=== PATIENT | female | born 1945 | race Caucasian/White ===

== ENCOUNTER 2024-01-21 09:43 | Emergency (ER) | payer OTHER, SELFPAY ==
[2024-01-21] VITALS (10 sets, daily range): BP systolic 114–144; BP diastolic 60–73; PULSE 69–84; BMI 22.1
[2024-01-21] MEDS: NSS 1000 IV (10:36)
[2024-01-21 10:47] LABS: % Basophils 0.8 % (0-2); % Eosinophils 4.8 % (0-6); % Immature Granulocytes 0.3 % (0-0.5); % Lymphocytes 22.1 % (20.5-51.1); % Monocytes 10.1 % (1.7-9.3); % Neutrophils 61.9 % (42.2-75.2); Absolute Basophils 0.1 10^3/uL (0-0.2); Absolute Eosinophils 0.3 10^3/uL (0-0.7); Absolute Lymphocytes 1.4 10^3/uL (1.2-3.4); Absolute Monocytes 0.7 10^3/uL (0.1-0.6); Hematocrit 35.7 % (37.0-47.0); Hemoglobin 11.9 g/dL (12.0-16.0); Mean Corp Hgb Conc. 33.3 g/dL (33.0-37.0); Mean Corpuscular Hgb 30.7 pg (27.0-31.0); Mean Platelet Volume 10.1 fL (7.4-10.4); Nucleated Red Blood Cells % 0 %; Platelet Count 230 10^3/uL (130-400); Red Blood Cell Count 3.88 10^6/uL (4.20-5.40); Red Cell Dist. Width 13.6 % (11.5-14.5); White Blood Cell Count 6.4 10^3/uL (4.8-10.8)
[2024-01-21 11:07] LABS: ALT (SGPT) 15 U/L (0-35); AST (SGOT) 29 U/L (14-36); Albumin 5.1 g/dl (3.5-5.0); Alkaline Phosphatase 50 U/L (38-126); Blood Urea Nitrogen 31 mg/dl (7-17); Calcium 9.9 mg/dl (8.4-10.2); Chloride 104 mmol/L (98-107); Estimated Creatinine Clearance 41 ml/min; Glucose 101 mg/dl (70-99); Potassium 4.7 mmol/L (3.5-5.1); Sodium 139 mmol/L (135-145); Total Bilirubin 0.9 mg/dl (0.2-1.3); Total Protein 8.3 g/dl (6.3-8.2)
--- NOTE | 2024-01-21 11:10 | EDRN ---
provider currently at the pts bedside
--- NOTE | 2024-01-21 11:16 | ED.GENMED ---
History of Present Illness
General
Chief Complaint: Dizziness
Source: patient and family
Exam Limitations: none
Time Seen by Provider: 01/21/24 10:44
Nursing documentation reviewed up to this point in time: agreed with
History of Present Illness
History of Present Illness:
Patient is an 78-year-old female with history hypertension, hyperlipidemia, Alzheimer's presenting to the emergency department for evaluation of lightheadedness. Patient states she felt 'woozy 'like she was going to pass out yesterday when she woke
up for a few hours. It resolved and for the rest the day yesterday she was feeling her baseline. This morning when was leaning down to get her cat out from under a table she had another episode of 'wooziness '. Her daughter was at her house at
the time and they checked her blood pressure which was found to be 80s/60s. They spoke to her primary care provider who recommended that she come to the emergency department for further evaluation.
Patient denies any fever, chills, chest pain, or shortness of breath. Patient denies any true dizziness sensation or feeling of spinning/motion. Patient denies any difficulties walking/unsteady gait. Patient denies any visual changes, blurry
vision, double vision. Patient denies any nausea or vomiting.
Patient does note that she does not drink much water during the day. She mainly drinks coffee.
Past History
Past History
ED Past Medical History: HTN, Hypercholesterolemia and Other (Alzheimer's)
ED Past Surgical History: None
Social History
Tobacco: Non-smoker
Alcohol: None
Drug: None
Employment: Retired
Review of Systems
Review of Systems
Allergies reviewed?: Yes
All Other Systems: ROS reviewed and negative except as documented in HPI and ROS
Phy Exam
Physical Exam
Physical Exam:
Vitals: Patient's vital signs are stable. Afebrile
General: Patient is frail appearing, no acute distress. Nontoxic-appearing
Skin: Warm and dry, no rashes or lesions
Head: Normocephalic, atraumatic
Eyes: Sclera nonicteric. EOMs intact. No nystagmus.
Throat: Protecting airway. Dry mucous membranes
Neck: Normal ROM, no cervical spine tenderness, no meningismus
Cardiac: Regular rate and rhythm, no murmurs.
Pulm: Normal respiratory effort, no wheezes, rales, rhonchi heard on exam.
Abdomen: Abdomen soft. No abdominal tenderness.
Extremities: No evidence of cyanosis or edema. Great distal pulses
Neuro: AAOx3. CN II-XII intact. No focal neurologic deficits. Steady gait. Normal finger-nose. Strength 5 out of 5 in upper and lower extremities. Sensation fully intact.
Psychiatric: Normal affect.
Course
Orders/Labs/Results
Orders:
Orders
01/21/24 09:58
Electrocardiogram (*1) Urgent
Reason for Study: Vertigo / Dizzy
EKG- Treatment ONCE
01/21/24 10:35
0.9% Sodium Chloride 1000 ml [Nss] 1,000 ml IV BOLUS
01/21/24 10:36
CMP [Comprehensive Metabolic Panel] Urgent
Complete Blood Count/With Diff Urgent
01/21/24 12:36
Orthostatic VS- Treatment ONCE
Abnormal Lab Results
01/21/24
10:36
RBC 3.88 L 10^6/uL
(4.20-5.40)
Hgb 11.9 L g/dL
(12.0-16.0)
Hct 35.7 L %
(37.0-47.0)
Absolute Monos (auto) 0.7 H 10^3/uL
(0.1-0.6)
Monocytes % 10.1 H %
(1.7-9.3)
BUN 31 H mg/dl
(7-17)
Creatinine 1.1 H mg/dL
(0.6-1.0)
Glucose 101 H mg/dl
(70-99)
Total Protein 8.3 H g/dl
(6.3-8.2)
Albumin 5.1 H g/dl
(3.5-5.0)
01/21/24 10:36
01/21/24 10:36
Vital Signs
Initial and Last Documented VS:
Initial Vital Signs
Temp Pulse Resp BP Pulse Ox
97.9 F 70 20 125/65 96
01/21/24 09:55 01/21/24 09:55 01/21/24 09:55 01/21/24 09:55 01/21/24 09:55
Last Documented Vital Signs
Temp Pulse Resp BP Pulse Ox
97.9 F 76 15 130/64 96
01/21/24 09:55 01/21/24 12:23 01/21/24 12:23 01/21/24 12:23 01/21/24 12:23
MDM/Problems Addressed
Differential Diagnosis Includes:
Not limited to: Orthostatic hypotension dehydration, viral illness, cardiac arrhythmia, anemia, BPPV
MDM/Problems Addressed:
78-year-old female presenting with lightheaded sensation this morning associated with low blood pressure readings at home. Positional lightheadedness with systolic blood pressure in 80s this morning. No other associated headache, dizziness,
nausea, vomiting, chest pain, or shortness of breath. Patient denies any ataxia, visual disturbances, speech difficulties. Patient instructed to visit emergency department by primary care physician. Patient asymptomatic by time of arrival to
emergency department my assessment. Vital signs are stable. Blood pressure of 125/65. Otherwise vital signs are stable. Physical exam as above. Patient is frail-appearing although nontoxic. Somewhat dry mucous membranes. Heart regular rate
and rhythm. Lungs clear bilaterally. Abdomen is soft and nontender. Patient is perfusing well. She is no focal neurologic deficits on exam. She is in normal [id number]. To get patient up and walking with a steady gait. Speech is fluid.
Orthostatic vital signs were obtained by nurse on initial evaluation which do show a drop in the systolic blood pressure of 25. This would be consistent with orthostatic hypotension. Labs were initiated in triage which show no clinically again
abnormalities. Some mild prerenal insufficiency noted�likely due to dehydration as patient does note she drinks very little water and only coffee. EKG without any acute ischemic changes or arrhythmias. Will give patient a liter of saline and
recheck orthostatic vital signs.
Patient has remained asymptomatic in the emergency department since arrival. She denies any current lightheadedness, dizziness. Repeat orthostatic vital signs normalized without any systolic drop following liter of IV fluids. No indication for
admission at this time. Suspect symptoms likely due to dehydration. Discussed case with attending physician. Patient will be discharged with instruction to stay well-hydrated, take it easy over the next 2 days. Return precautions discussed at
length. Patient will follow with primary care. Advised to have labs rechecked in 1 to 2 weeks
Chronic conditions affecting care:
Hypertension, hyperlipidemia, Alzheimer's
Acute Exacerbation and/or Progression of Chronic Illness:
N/A
*Pulse Oximetry
Patient hypoxic: no
*EKG
Interpreted by ED Provider?: Yes
EKG Intrepretation Date: 01/21/24
Interpretation: normal
Comparison EKG: no changes
Heart Rate: 67
Rate: normal
Rhythm: sinus
[place]: normal axis
Interval: normal interval
QRS Pattern: normal QRS
Ischemia: no ischemia
*[employer] Interpretation
Rate: normal
Interpretation: normal
Heart Rate: 75
Rhythm: sinus
*Critical Care Note
Total Time (30-74mins, 75-104mins- exclusive of procedures): Not Applicable
ED Attending Note
-
Portions of this chart may have been created with voice recognition software.� Occasional wrong word or��sound alike� substitutions may have occurred due to the inherent limitations of voice recognition software.
Discharge Plan
Departure
Patient Disposition: Home (Routine Discharge)
Date of Disposition: 01/21/24
Time of Disposition: 13:04
Patient with high blood pressure during this ER visit?: No
Condition: Good
Covid-19: Not Applicable
Discharge Problem:
Light-headedness
Instructions: Orthostatic hypotension, Dehydration, Adult ED
Prescriptions:
No Action
albuterol sulfate [ProAir HFA] 90 mcg/actuation HFA aerosol inhaler
1 puff inhalation Q4HPRN PRN (Reason: shortness of breath) Qty: 8.5 0RF
Referrals:
UNKNOWN - PT DOES,NOT KNOW [Family Provider] -
Activity Restrictions/Additional Instructions:
RETURN TO THE EMERGENCY DEPARTMENT WITH ANY FEVERS, LIGHTHEADEDNESS/DIZZINESS, FAINTING, CHEST PAIN, SHORTNESS OF BREATH, LOW BLOOD PRESSURE, SIGNS OF SEVERE DEHYDRATION, WORSENING IN CURRENT SYMPTOMS, OR ANY OTHER CONCERNS
-As discussed - it is important to stay well hydrated. You should take it easy over the next few days. Please ensure that you move slowly from sitting to standing. If you notice any persistent low blood pressure or if associated with symptoms,
return to the emergency department
-Please have your labs rechecked with your primary care within 1-2 weeks. You should have a CBC and a basic metabolic panel (BMP).
-Continue to take all of your medications as prescribed
-Follow-up with your PCP in a week to ensure symptoms improving/for further evaluation
Monitor your symptoms closely and return to the emergency department with any acute worsening/new symptoms.
Interventions
Interventions:
*Risk Screen - Suicide Last Done: 01/21/24 10:40
*General Assessment Last Done: 01/21/24 10:40
*Neglect/Abuse Screening Last Done: 01/21/24 10:40
ED- Fall Risk Assessment Last Done: 01/21/24 10:40
*ED COVID-19 Vaccine History Last Done: 01/21/24 10:40
*Nursing Disposition Last Done: 01/21/24 13:41
ED- Neurological Assessment Last Done: 01/21/24 10:40
ED- Cardiac Assessment Last Done: 01/21/24 10:40
ED Swallowing Screen Last Done: 01/21/24 10:40
Discharge Date and Time
Discharge Date/Time: 01/21/24 13:42
Print Language: CHINESE
[2024-01-21 11:32] LABS: Carbon Dioxide 27 mmol/L (22-30)
== END 2024-01-21 13:42 | disposition home or self-care (01) ==
LOC: EMR 09:43
PROVIDERS: EMERGENCY PHYSICIAN Emergency Medicine
DX: R42 Dizziness and giddiness (principal); I10 Essential (primary) hypertension; E78.00 Pure hypercholesterolemia, unspecified; F02.80 Dementia in other diseases classified elsewhere, unspecified severity, without behavioral disturbance, psychotic disturbance, mood disturbance, and anxiety; G30.9 Alzheimer's disease, unspecified; R54 Age-related physical debility; Z88.0 Allergy status to penicillin
CPT/HCPCS: 99284; 96360; 80053; 85025; 93005

== ENCOUNTER 2024-07-08 13:27 | Outpatient (RCR) | payer SELFPAY | END 2024-07-08 23:59 | disposition home or self-care (01) | LOC: ROT 13:27 | PROVIDERS: ATTENDING PHYSICIAN Psychiatry & Neurology Neurology | DX: Z02.4 Encounter for examination for driving license (principal) ==

== ENCOUNTER 2025-01-18 09:51 | Emergency (ER) | payer OTHER, SELFPAY ==
[2025-01-18 10:10] VITALS: BP 139/65
--- NOTE | 2025-01-18 12:10 | ED.GENMED ---
History of Present Illness
General
Chief Complaint: Blood Pressure Problem
Time Seen by Provider: 01/18/25 12:03
History of Present Illness
History of Present Illness:
79-year-old female presents to the emergency department for evaluation of the low blood pressure that was recorded yesterday. She states she felt nauseated yesterday and her respiratory care program director at home and took a blood pressure of 60 systolic. Her son
advised her to come to the hospital for evaluation. She states she feels well today. She does note that she takes 3 blood pressure medicines but is not certain what these medicines are, tells me that she intentionally held the medicines this
morning. Her respiratory care program director is not able to provide any information and I was unable to reach the son by telephone. She denies any fever, chills, sweats, chest pain, or shortness of breath
Past History
Past History
ED Past Medical History: HTN, Hypercholesterolemia and Other (Alzheimer's)
ED Past Surgical History: None
Social History
Tobacco: Non-smoker
Alcohol: None
Drug: None
Employment: Retired
Review of Systems
Review of Systems
Allergies reviewed?: Yes
All Other Systems: ROS reviewed and negative except as documented in HPI and ROS
Phy Exam
Physical Exam
Physical Exam:
GEN: Well appearing, NAD, WDWN
HEENT: Oral mucosa moist, no scleral icterus
Cardiac: Regular rate and rhythm, no murmurs
Lung: No respiratory distress, no tachypnea, lungs clear to auscultation
MSK: No gross deformity or injuries
Skin: Good color, no pallor or jaundice, no rashes
Neuro: AO x3, moves all extremities freely
Psych: Calm, cooperative
Course
Orders/Labs/Results
Orders:
01/18/25 12:08
01/18/25 12:08
Vital Signs
Initial and Last Documented VS:
Initial Vital Signs
Temp Pulse Resp BP Pulse Ox
98.0 F 68 18 139/65 98
01/18/25 10:10 01/18/25 10:10 01/18/25 10:10 01/18/25 10:10 01/18/25 10:10
Last Documented Vital Signs
Temp Pulse Resp BP Pulse Ox
98.0 F 68 18 139/65 98
01/18/25 10:10 01/18/25 10:10 01/18/25 10:10 01/18/25 10:10 01/18/25 12:10
MDM/Problems Addressed
MDM/Problems Addressed:
After my evaluation I had recommended checking labs to evaluate for electrolyte derangement, renal dysfunction, or anemia however there the patient declines, she does have dementia but her respiratory care program director spoke with her son who feels that he does not need
any lab work, her blood pressure is improved. The patient eloped prior to my reassessment in order for me to discuss how to manage her home blood pressure medicine going forward
*Pulse Oximetry
SaO2: 98
Oxygen Mode of Delivery: Room air
Patient hypoxic: no
*Critical Care Note
Total Time (30-74mins, 75-104mins- exclusive of procedures): Not Applicable
Update Note
Update Note:
1217: Pt eloped after evaluation. Per RN, pt and son declined labs.
ED Attending Note
-
Portions of this chart may have been created with voice recognition software.� Occasional wrong word or��sound alike� substitutions may have occurred due to the inherent limitations of voice recognition software.
Discharge Plan
Departure
Patient Disposition: Elopement
Date of Disposition: 01/18/25
Time of Disposition: 12:17
Discharge Problem:
Acute hypotension
Prescriptions:
No Action
albuterol sulfate [ProAir HFA] 90 mcg/actuation HFA aerosol inhaler
1 puff inhalation Q4HPRN PRN (Reason: shortness of breath) Qty: 8.5 0RF
Referrals:
UNKNOWN - PT DOES,NOT KNOW [Family Provider]
Interventions
Interventions:
*Risk Screen - Suicide Last Done: 01/18/25 10:10
*Neglect/Abuse Screening Last Done: 01/18/25 10:10
*Nursing Disposition Last Done: 01/18/25 12:27
Discharge Date and Time
Discharge Date/Time: 01/18/25 12:31
Print Language: SLOV[place]
== END 2025-01-18 12:31 | disposition left against medical advice (07) ==
LOC: EMR 09:51
PROVIDERS: EMERGENCY PHYSICIAN Emergency Medicine
DX: I95.9 Hypotension, unspecified (principal); R11.0 Nausea; I10 Essential (primary) hypertension; E78.00 Pure hypercholesterolemia, unspecified; F02.80 Dementia in other diseases classified elsewhere, unspecified severity, without behavioral disturbance, psychotic disturbance, mood disturbance, and anxiety; G30.9 Alzheimer's disease, unspecified
CPT/HCPCS: 99281